=== PATIENT | male | born 1970 | race Hispanic/Latino ===

== ENCOUNTER 2017-05-04 01:42 | Emergency (ER) | payer OTHER ==
[~2017-05-04] VITALS: Ht 160 cm; Wt 81.6 kg
[2017-05-04 01:44] VITALS: BP 161/88
[2017-05-04] MEDS ORDERED: SOLU-MEDROL IM STA (01:53)
[2017-05-04] MEDS ORDERED: DECADRON IH STA (01:53)
[2017-05-04] MEDS ORDERED: DUONEB 0.5 MG-3 MG/3 ML SOLN IH STA (01:53)
--- NOTE | 2017-05-04 01:56 | ER.PDOC ---
General Chief Complaint: Dyspnea/Respdistress Stated Complaint: DIFFICULTY BREATHING Time seen by MD: 01:55 Source: patient Exam Limitations: no limitations History of Present Illness Initial Comments Cough and SOB for 2 weeks Severity: moderate Prior Episodes/Possible Cause: occasional episodes Modifying Factors: improves with albuterol nebulizer Associated Symptoms: cough Allergies: Coded Allergies: codeine (Verified Allergy, Unknown, 05/04/17) Past Medical History Medical History: COPD, diabetes, hypertension Social History Smoking: non-smoker Alcohol Use: none Drug Use: none Review of Systems Constitutional: no symptoms reported Respiratory: see HPI Cardiovascular: no symptoms reported Gastrointestinal: no symptoms reported Genitourinary: no symptoms reported Musculoskeletal: no symptoms reported All Other Systems: Reviewed and Negative Physical Exam General Appearance: No Apparent Distress, WD/WN HEENT: PERRL/EOMI, Normal ENT Inspection, TMs Normal, Pharynx Normal Neck: Non-Tender, Full Range of Motion, Supple, Normal Inspection Respiratory: chest non-tender, decreased breath sounds, wheezing Cardiovascular: Normal Peripheral Pulses, Regular Rate, Rhythm, No Edema, No Gallop, No JVD, No Murmur Gastrointestinal: Normal Bowel Sounds, No Organomegaly, No Pulsatile Mass, Non Tender, Soft Extremities: Normal Range of Motion, Non-Tender, Normal Inspection, No Pedal Edema, No Calf Tenderness, Normal Capillary Refill Neurologic/Psychiatric: estimate clerk II-XII NML as Tested, No Motor/Sensory Deficits, Alert, Normal Mood/Affect, Oriented x 3 Skin: Normal Color, Warm/Dry Results/Orders Results/Orders Laboratory Tests Test 05/04/17 02:03 05/04/17 02:25 05/04/17 02:35 White Blood Count 16.7 10^3/uL (4.5-11.0) Red Blood Count 5.50 10^6/uL (4.50-5.90) Hemoglobin 16.4 g/dL (13.9-16.3) Hematocrit 49.5 % (37.0-53.0) Mean Corpuscular Volume 90.0 fL (78-100) Mean Corpuscular Hemoglobin 29.8 pg (26-34) Mean Corpuscular Hemoglobin Concent 33.1 g/dL (33-37) Red Cell Distribution Width 13.3 % (11.5-14.5) Platelet Count 351 10^3/uL (150-400) Mean Platelet Volume 9.5 fL (7.8-11.0) Neutrophils (%) (Auto) 71.0 % (41.0-85.0) Lymphocytes (%) (Auto) 21.4 % (24.0-44.0) Monocytes (%) (Auto) 5.2 % (5.0-12.0) Neutrophils # (Auto) 11.8 10^3/uL (1.8-7.7) Lymphocytes # (Auto) 3.6 10^3/uL (1.0-4.8) Monocytes # (Auto) 0.9 10^3/uL (0.3-0.8) Eosinophils % 2.0 % (0.0-5.0) Basophils % 0.4 % (0.0-0.2) Basophils # 0.1 10^3/uL (0.0-0.1) Eosinophil Count 0.3 10^3/uL (0.0-0.2) Prothrombin Time 10.2 SEC (9.8-11.9) Prothrombin Time INR (Non-Therap) 1.0 Activated Partial Thromboplast Time 27.2 SEC (24.67-30.72) D-Dimer 0.51 mg/L (0.19-0.49) Sodium Level 140 mmol/L (132-145) Potassium Level 4.3 mmol/L (3.6-5.2) Chloride Level 102.0 mmol/L (96-109) Carbon Dioxide Level 27.3 mmol/L (20.0-32) Anion Gap 15.0 Blood Urea Nitrogen 15 mg/dL (7-18) Creatinine 0.97 mg/dL (0.59-1.40) Estimated GFR () 100.4 (>/=60) BUN/Creatinine Ratio 15.0 Glucose Level 99 mg/dL (70-110) Calcium Level 9.1 mg/dL (8.4-10.5) Total Bilirubin 0.6 mg/dL (0.2-1.0) Aspartate Amino Transf (AST/SGOT) 45 U/L (0-35) Alanine Aminotransferase (ALT/SGPT) 71 U/L (12-78) Alkaline Phosphatase 126 U/L (50-136) Total Creatine Kinase 308 U/L (39-308) Creatine Kinase MB 3.8 ng/mL (0.5-3.6) Troponin I < 0.02 ng/mL (0.00-0.05) Pro-B-Type Natriuretic Peptide 31 pg/mL (0-125) Total Protein 8.3 g/dL (6.4-8.2) Albumin 3.7 g/dL (3.4-5.0) Globulin 4.6 Influenza Virus Type A Antibody NEGATIVE (NEG) Influenza Virus Type B Antibody NEGATIVE (NEG) Differential Total Cells Counted 100 #CELLS Segmented Neutrophils 72 % (31-76) Lymphocytes 19 % (25-36) Monocytes 6 % (3-9) Absolute Eosinophils (Manual) 2 % (1-4) Basophils 1 % (0-2) Platelet Estimate ADEQUATE Platelet Morphology NORMAL Blood Morphology Comment NORMAL MORPHOLOGY Group A Streptococcus Screen POSITIVE (NEGATIVE) Administered Medications Medications (Trade) Dose Ordered Sig/Shin Route PRN Reason Start Time Stop Time Status Last Admin Dose Admin Albuterol/ Ipratropium (Duoneb 0.5 Mg-3 Mg/3 ml Soln) 3 ml STAT STAT IH 05/04/17 01:53 05/04/17 01:55 DC 05/04/17 01:53 Dexamethasone Sodium Phosphate (Decadron) 4 mg STAT STAT IH 05/04/17 01:53 05/04/17 01:55 DC 05/04/17 01:53 Methylprednisolone Sodium Succinate (Solu-Medrol) 125 mg STAT STAT IM 05/04/17 01:53 05/04/17 01:55 DC 05/04/17 02:25 EKG/XRAY/CT/US EKG Comments: Sinus tachycardia XRAY: chest Departure Time of Disposition: 02:54 Disposition: 01 HOME, SELF-CARE Impression: Primary Impression: COPD exacerbation Additional Impression: Strep pharyngitis Condition: Improved Additional Instructions: Bactrim DS Prednisone Albuterol HHN Rest home today and return to work tomorrow F/U with your PCP in 2-3 days Duration or Time Spent with Pa: 60 mins Problem Qualifiers RONNY AMES MD May 04, 2017 01:56
[2017-05-04] MEDS ORDERED: DECADRON ONE (02:02)
[2017-05-04] MEDS ORDERED: DUONEB 0.5 MG-3 MG/3 ML SOLN IH ONE (02:02)
[2017-05-04 02:18] LABS: BASOPHIL # 0.1 10^3/uL (0.0-0.1); BASOPHIL % 0.4 % (0.0-0.2); EOSINOPHIL # 0.3 10^3/uL (0.0-0.2); HEMOGLOBIN 16.4 g/dL (13.9-16.3); LYMPHOCYTES # 3.6 10^3/uL (1.0-4.8); LYMPHOCYTES % 21.4 % (24.0-44.0); MEAN CELL HGB 29.8 pg (26-34); MEAN CELL HGB CONCENTRATION 33.1 g/dL (33-37); MEAN PLATELET VOLUME 9.5 fL (7.8-11.0); MONOCYTES # 0.9 10^3/uL (0.3-0.8); MONOCYTES % 5.2 % (5.0-12.0); NEUTROPHIL # 11.8 10^3/uL (1.8-7.7); PLATELET COUNT 351 10^3/uL (150-400); RED CELL DISTRIBUTION WIDTH 13.3 % (11.5-14.5); WHITE BLOOD CELL 16.7 10^3/uL (4.5-11.0)
--- NOTE | 2017-05-04 02:20 | DIREP ---
PROCEDURE:CHEST 1 VIEW COMPARISON:None. INDICATIONS:SOB and coughing FINDINGS: LUNGS/PLEURA:A shallow inspiratory excursion is noted. This results in crowding of the bronchopulmonary vascular structures, notably in the perihilar regions. No definitive evidence of consolidative infiltrate or sizable pleural effusion. VASCULATURE:Normal. Unremarkable pulmonary vasculature. CARDIAC:Normal. No cardiac silhouette abnormality or cardiomegaly. MEDIASTINUM:Normal. No visible mass or adenopathy. BONES:Degenerative changes of the left shoulder OTHER:Negative. CONCLUSION:Shallow inspiratory excursion. No active cardiopulmonary disease process Dictated by: Jesús Curry M.D. on 05/04/2017 at 02:18 AM
[2017-05-04] MEDS ORDERED: SOLU-MEDROL ONE (02:21)
--- NOTE | 2017-05-04 02:22 | PCM.EKG ---
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 Reading MD: Measurements Intervals [place] Rate: 109 P: 68 [place]: 136 QRS: -87 QRSD: 78 T: 67 QT: 348 QTc: 468 Interpretive Statements Sinus tachycardia Left axis deviation Abnormal ECG No previous ECG available for comparison Please click the below link to view image of tracing.
[2017-05-04 02:44] LABS: ALANINE AMINOTRANSFERASE(ML) 71 U/L (12-78); ALKALINE PHOSPHATASE 126 U/L (50-136); ASPARTATE AMINO TRANSFERASE 45 U/L (0-35); CALCIUM 9.1 mg/dL (8.4-10.5); CARBON DIOXIDE 27.3 mmol/L (20.0-32); GLUCOSE 99 mg/dL (70-110)
[2017-05-04 02:48] LABS: BASOPHIL 1 % (0-2); EOSINOPHIL 2 % (1-4); LYMPHOCYTE 19 % (25-36); MONOCYTE 6 % (3-9); SEGMENTED NEUTROPHILS 72 % (31-76)
[2017-05-04] MEDS ORDERED: BICILLIN L-A IM STA (02:52)
[2017-05-04] MEDS ORDERED: BICILLIN L-A IM ONE (02:59)
[2017-05-04 03:06] VITALS: BP 127/86
[2017-05-04 03:18] VITALS: BP 127/86
== END 2017-05-04 03:18 | disposition home or self-care (01) ==
LOC: ER 01:42
DX: J44.1 Chronic obstructive pulmonary disease with (acute) exacerbation (principal); J02.0 Streptococcal pharyngitis; E11.9 Type 2 diabetes mellitus without complications; I10 Essential (primary) hypertension; Z88.5 Allergy status to narcotic agent
CPT/HCPCS: 36415; 71045; 80053; 82550; 82553; 83880; 84484; 85025; 85379; 85610; 85730; 86710; 87040 ×2; 87880; 93005; 94640; 96372 ×2; 99285; A4628; J0561; J1100; J2930; J7620